=== PATIENT | female | born 1975 | race Caucasian/White ===

== ENCOUNTER 2016-12-15 17:29 | Emergency (ER) | payer OTHER ==
[~2016-12-15] VITALS: Ht 149.9 cm; Wt 62.4 kg
[~2016-12-15 17:29] MED LIST: KEFLEX500 MG PO; NAPROSYN500 MG PO; NO MEDS; NOHOMEMEDS; NORCO 5/3251 TABLET PO; PEPCID20 MG PO; PREDNISONE5 M1 PO; TRAMADOL HCL50 MG PO; VICODIN,LORT1 TABLET; [UNRECOGNIZED DRUG - REMARK]
[2016-12-15] MEDS ORDERED: MOTRIN800 MG PO (19:25)
[2016-12-15 19:32] VITALS: BP 110/82
== END 2016-12-15 19:37 | disposition home or self-care (01) ==
LOC: EME 17:29
DX: S90.32XA Contusion of left foot, initial encounter (principal); W20.8XXA Other cause of strike by thrown, projected or falling object, initial encounter; Y93.89 Activity, other specified
CPT/HCPCS: 73630; 99281; 99283

== ENCOUNTER 2017-09-10 14:31 | Emergency (ER) | payer OTHER ==
[~2017-09-10] VITALS: Ht 147.3 cm; Wt 72.1 kg
[~2017-09-10 14:31] MED LIST changes: +MOTRIN800 MG PO
[2017-09-10 15:25] VITALS: BP 126/79
[2017-09-10] MEDS ORDERED: FLEXERIL10 MG PO (16:58)
== END 2017-09-10 17:30 | disposition home or self-care (01) ==
LOC: EME 14:31
DX: S43.401A Unspecified sprain of right shoulder joint, initial encounter (principal); W00.0XXA Fall on same level due to ice and snow, initial encounter
CPT/HCPCS: 73030

== ENCOUNTER 2018-02-03 01:58 | Emergency (ER) | payer OTHER ==
[~2018-02-03] VITALS: Ht 147.3 cm; Wt 75.9 kg
[~2018-02-03 01:58] MED LIST changes: +FLEXERIL10 MG PO
[2018-02-03 03:43] VITALS: BP 131/81
== END 2018-02-03 03:44 | disposition home or self-care (01) ==
LOC: EME 01:58
DX: S61.212A Laceration without foreign body of right middle finger without damage to nail, initial encounter (principal); W45.8XXA Other foreign body or object entering through skin, initial encounter; W26.8XXA Contact with other sharp object(s), not elsewhere classified, initial encounter; Y93.G1 Activity, food preparation and clean up; Y99.0 Civilian activity done for income or pay; Z23 Encounter for immunization
CPT/HCPCS: 99281; 99283